=== PATIENT | female | born 1960 | race African-American/Black ===

== ENCOUNTER 2025-02-23 06:24 | Day surgery (SDC) | payer OTHER, MEDICARE ==
[2025-02-18 15:50] VITALS: BMI 34.4
[2025-02-23] MEDS ORDERED: LIDOCAINE HCL/PF 2% SDV 5ML VIAL ONE (07:29)
[2025-02-23] MEDS ORDERED: PROPOFOL 160 ML ONE (07:30)
[2025-02-23 08:59] VITALS: TEMP 97.3
[2025-02-23 09:15] VITALS: BP 124/72; PULSE 76; RESP 19
== END 2025-02-23 09:24 | disposition home or self-care (01) ==
LOC: FASU-ENDO 06:24
PROVIDERS: ATTEND Internal Medicine Gastroenterology
PROC: 0DJD8ZZ Inspection of Lower Intestinal Tract, Via Natural or Artificial Opening Endoscopic (ICD-10-PCS; principal; 2025-02-23 08:27)
DX: Z12.11 Encounter for screening for malignant neoplasm of colon (principal)